=== PATIENT | female | born 1995 | race American Indian/Alaskan Native ===

== ENCOUNTER 2017-04-13 06:38 | Emergency (ER) | payer OTHER ==
[2017-04-13 07:16] LABS: Basophils % (Auto) 0.5 % (0.0-1.8); Hematocrit 40.2 % (30.3-42.9); Mean Corpuscular HGB Conc 32 % (30-34); Mean Corpuscular Hemoglobin 29 pg (28-32); Mean Corpuscular Volume 90 fl (79-97); Platelet Count 186 K/mm3 (140-440); Red Blood Count 4.48 M/mm3 (3.65-5.03); Red Cell Distribution Width 13.5 % (13.2-15.2); White Blood Count 8.1 K/mm3 (4.5-11.0)
[2017-04-13 08:38] LABS: Bilirubin,Urine NEG (Negative); Blood,Urine NEG (Negative); Ketones,Urine NEG (Negative); Leukocyte Esterase,Urine NEG (Negative); Mucus,Urine FEW /HPF; Nitrite,Urine NEG (Negative); Protein,Urine <15 mg/dL mg/dL (Negative)
--- NOTE | 2017-04-13 08:57 | Ultrasound Report ---
ULTRASOUND OB LESS THAN 14 WEEKS FETUS ULTRASOUND OB TRANSVAGINAL HISTORY: Vaginal bleeding during . TECHNIQUE: Transabdominal and transvaginal ultrasound with color and spectral doppler interrogation. No comparison at this facility. The uterus measures 11 x 7 x 8 cm. A single intrauterine is visualized with heart rate measuring 166 beats per minute. Estimated age on ultrasound as 9 weeks, 3 days. Estimated due date 11/13/17. Both ovaries are visualized and are within normal limits. No pelvic fluid collection. IMPRESSION: Viable, single intrauterine as described. No acute abnormality is detected.
--- NOTE | 2017-04-13 13:32 | Emergency Department Report ---
HPI - General Chief Complaint: Vaginal Bleeding Time Seen by Provider: 04/13/17 12:36 - HPI HPI: Patient about 10 weeks AGA presents to ED with pelvic pain. She said yesterday she was seen at [facility] for same after she passed a clot through her vagina. Then getting primary [facility] care during this . After she was seen at [facility] she stated her pain remained so she came back to the ER today. Patient denies any fever, denies vaginal discharge, denies vaginal bleeding. ED Past Medical Hx - Past Medical History Hx Psychiatric Treatment: Yes (Bipolar, PTSD) Additional medical history: Right Ovarian Cyst - Surgical History Past Surgical History?: No - Social History Smoking Status: Current Every Day Smoker Substance Use Type: Marijuana - Medications Home Medications: Home Medications Medication Instructions Recorded Confirmed Last Taken Type Tablet 1 tab PO DAILY 04/13/17 04/13/17 Unknown History SEROquel 100 mg PO HS 04/13/17 04/13/17 Unknown History ED Review of Systems ROS: Stated complaint: LOWER ABD PAIN AND BACK PAIN Other details as noted in HPI Comment: All other systems reviewed and negative Constitutional: no symptoms reported Genitourinary: other (pelvic pain) Physical Exam - Physical Exam Vital Signs: Vital Signs 04/13/17 04/13/17 04/13/17 06:41 06:44 12:05 Temperature 98.6 F 98.6 F 98.6 F Pulse Rate 85 77 55 L Respiratory 18 16 Rate Blood Pressure 117/68 117/68 Blood Pressure 114/62 [Left] O2 Sat by Pulse 97 97 100 Oximetry Physical Exam: - Physical Exam: - General Limitations: No Limitations General appearance: alert, in no apparent distress, obese - Head Head exam: Present: atraumatic, normocephalic - Eye Eye exam: Present: normal appearance - ENT ENT exam: Present: mucous membranes moist - Neck Neck exam: Present: normal inspection - Respiratory Respiratory exam: Present: normal lung sounds bilaterally. Absent: respiratory distress - Cardiovascular Cardiovascular Exam: Present: normal rhythm, tachycardia. Absent: systolic murmur, diastolic murmur, rubs, gallop - GI/Abdominal GI/Abdominal exam: Present: soft, normal bowel sounds ; patient refused. - Extremities Exam Extremities exam: Present: normal inspection - Back Exam Back exam: Present: normal inspection - Neurological Exam Neurological exam: Present: alert, oriented X3 - Psychiatric Psychiatric exam: normal affect and mood - Skin Skin exam: Present: warm, dry, intact, normal color. Absent: rash ED Course Vital Signs 04/13/17 04/13/17 04/13/17 06:41 06:44 12:05 Temperature 98.6 F 98.6 F 98.6 F Pulse Rate 85 77 55 L Respiratory 18 16 Rate Blood Pressure 117/68 117/68 Blood Pressure 114/62 [Left] O2 Sat by Pulse 97 97 100 Oximetry ED Medical Decision Making - Lab Data Result diagrams: 04/13/17 07:00 Critical care attestation.: If time is entered above; I have spent that time in minutes in the direct care of this critically ill patient, excluding procedure time. ED Disposition Clinical Impression: Pelvic pain Disposition: DC-01 TO HOME OR SELFCARE Is pt being admited?: No Does the pt Need Aspirin: No Condition: Stable Instructions: (ED) Referrals: PRIMARY CARE, [Primary Care Provider] - 3-5 Days
[2017-04-13 14:05] VITALS: BP 107/62
== END 2017-04-13 14:05 | disposition home or self-care (01) ==
LOC: ED 06:38
DX: O26.891 Other specified pregnancy related conditions, first trimester (principal); R10.2 Pelvic and perineal pain; F17.200 Nicotine dependence, unspecified, uncomplicated; F12.10 Cannabis abuse, uncomplicated; N83.201 Unspecified ovarian cyst, right side; F31.9 Bipolar disorder, unspecified
CPT/HCPCS: 36415; 76801; 76817; 81001; 84702; 85025; 86850; 86900; 86901